=== PATIENT | female | born 1995 | race Asian ===

== ENCOUNTER 2019-08-24 10:49 | Emergency (ER) | payer SELFPAY ==
[2019-08-24 11:56] LABS: Absolute Lymphocytes (CBC) 1.9 K/uL (0.7-4.9); Basophils % 0.9 % (0-1.3); Hematocrit 41.5 % (36.0-45.0); Lymphocytes % 23.7 % (15.3-44.8); MPV 8.3 fL (7.6-11.3); RBC Red Blood Cell Count 5.19 M/uL (3.86-4.86)
[2019-08-24 12:05] LABS: Protime INR 1.04
--- NOTE | 2019-08-24 12:16 | EKG ---
Test Date: 2019-08-24 Test Time: 11:48:07 Cement Side Laster: BRENNA MEASUREMENT RESULTS: Intervals: Rate: 70 NH: 234 QRSD: 74 QT: 380 QTc: 410 [place]: P: 24 NH: 234 QRS: 68 T: 43 INTERPRETIVE STATEMENTS: Sinus rhythm with 1st degree AV block Otherwise normal ECG No previous ECG available for comparison Electronically Signed On 08-24-19 12:16:07 CRADLE PLACER by Andres Chi
[2019-08-24 12:30] LABS: ALT/SGPT 26 U/L (12-78); AST/SGOT 18 U/L (15-37); Albumin 4.2 g/dL (3.4-5.0); Alkaline Phosphatase 88 U/L (45-117); BUN Blood Urea Nitrogen 10 mg/dL (7-18); Bicarbonate 29 mmol/L (21-32); Bilirubin Direct 0.1 mg/dL (0-0.2); Bilirubin Total 0.4 mg/dL (0.2-1.0); Glucose Level 105 mg/dL (74-106); Potassium 3.9 mmol/L (3.5-5.1); Protein, Total 8.1 g/dL (6.4-8.2); Sodium Level 141 mmol/L (136-145)
[2019-08-24 12:43] LABS: Barbiturates NEGATIVE (NEGATIVE); Benzodiazepines NEGATIVE (NEGATIVE); Cocaine NEGATIVE (NEGATIVE); METHAMPHETAM NEGATIVE (NEGATIVE); Methadone NEGATIVE (NEGATIVE); Opiates NEGATIVE (NEGATIVE); Phencyclidine NEGATIVE (NEGATIVE); THC Cannibis NEGATIVE (NEGATIVE)
[2019-08-24 13:02] LABS: Urine Blood 2+ (NEG); Urine Glucose NEGATIVE (NEG); Urine Protein 1+ (NEG); Urine Specific Gravity 1.025 (1.005-1.030)
[2019-08-24] MEDS ORDERED: ACETAMINOPHEN 500 MG TAB ONE (13:24)
--- NOTE | 2019-08-24 15:44 | ER ---
Nurse's Notes [facility] Name: Yasmeen Smith Age: 24 yrs Sex: Female : 1995 Arrival Date: 08/24/2019 Time: 10:52 Bed 8 Private MD: Diagnosis: Post-traumatic stress disorder (PTSD);Major depressive disorder, recurrent Presentation: 08/24 11:11 Presenting complaint: Patient states: "I am just going through a lot and the aa5 sent me here". Pt reports suicidal ideations. Pt states "I am not taking my medications". Transition of care: patient was not received from another setting of care. Onset of symptoms was August 24, 2019. Risk Assessment: Do you want to hurt yourself or someone else? Patient reports desire/thoughts of hurting themselves or someone else. Provider notified. Initial Sepsis Screen: Does the patient meet any 2 criteria? No. Patient's initial sepsis screen is negative. Does the patient have a suspected source of infection? No. Patient's initial sepsis screen is negative. Care prior to arrival: None. 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 - Social history:: Smoking status: Patient/guardian denies using tobacco, Patient/guardian denies using alcohol, street drugs. - Ebola Screening: : No symptoms or risks identified at this time. Screenin:05 Abuse screen: Denies threats or abuse. Denies injuries from another. Nutritional sg screening: No deficits noted. Tuberculosis screening: No symptoms or risk factors identified. Never had TB. Fall Risk None identified. Assessment: 11:05 General: Appears in no apparent distress. well groomed, well developed, well nourished, sg Behavior is calm, cooperative, appropriate for age. Pain: Denies pain. Neuro: Level of Consciousness is awake, alert, obeys commands, Oriented to person, situation, Speech is normal. Cardiovascular: Heart tones S1 S2 present Patient's skin is warm and dry. Chest pain is denied. Respiratory: Airway is patent Respiratory effort is even, unlabored, Respiratory pattern is regular, symmetrical. GI: No signs and/or symptoms were reported involving the gastrointestinal system. : No signs and/or symptoms were reported regarding the genitourinary system. EENT: No signs and/or symptoms were reported regarding the EENT system. Derm: Skin is intact, is healthy with good turgor, Skin is dry, Skin is normal, Skin temperature is warm. Musculoskeletal: Circulation, motion, and sensation intact. Range of motion: intact in all extremities, Reports pain in headache,back pain. 12:05 Reassessment: Patient appears in no apparent distress at this time. Patient and/or sg family updated on plan of care and expected duration. Pain level reassessed. 13:05 Reassessment: Patient appears in no apparent distress at this time. Patient and/or sg family updated on plan of care and expected duration. Pain level reassessed. 13:30 Reassessment: Patient appears in no apparent distress at this time. pt requesting a sg blood test be performed, pt states " I need a blood test done because my urine has been negative, but im and im on my period. C.Kathy RAMIREZ notified. 13:40 Reassessment: awaiting [facility] evaluation. sg 14:07 Reassessment: Patient appears in no apparent distress at this time. [facility] sg outbound telemarketing representative at bedside assessing pt at this time. 20:00 Reassessment: Patient appears in no apparent distress at this time. Patient is alert, lp1 oriented x 3, equal unlabored respirations, skin warm/dry/pink. Reassessment: Patient updated on plan of care; Patient states she does not want to be transferred; Denies SI and HI at this time; States plan to follow up for continued care. General: Behavior is calm, cooperative. 20:40 Reassessment: JAMES Barrera at bedside to reassess patient. lp1 21:10 Reassessment: Patient's belonging returned at this time from security. lp1 21:30 Reassessment: Patient appears in no apparent distress at this time. Patient talking to lp1 personnel to receive all documentation necessary from Provider. 22:00 Reassessment: Patient waiting for ride home for discharge. lp1 Psych: 11:11 Subjective: Patient's mood is sad, Delusions are denied, Hallucinations are denied sg Having thoughts of suicide. Denies suicidal plan. Objective: Patient is cooperative, Speech is normal, Affect is blunted, flat. Interventions: Removed personal items and placed in bag. Patient placed in hospital gown. Searched person for dangerous items. Urine collected and sent for urine drug test. Belonging list filled out. Suicide Risk Assessment: Sad Person Scale: Sex of patient: Female: Score 0 points. Age of patient: Score 1 point if patient 15-34. Depression: Score 1 point if signs of depression are present. Previous Attempt: Score 0 point if patient has not previously attempted suicide. Substance Abuse: Score 0 point if patient does not abuse alcohol or drugs. Rational Thinking: Score 0 point if patient has rational thinking. Social Support: Score 1 point if social support is lacking and/or unavailable. Organized Plan: Score 0 if patient did not have an organized plan in place. Relationship: Score 1 point if patient is , , , or for a single male Chronic Sickness: Score 0 point if patient does not have a chronic illness, debilitating, or severe disorder. TOTAL POINTS: If total points are 3-4, proposed clinical action is close follow-up/consider hospitalization. Safety Checks: Personal items have been removed. Door is open. No visitors are present at this time. Pt denies substance abuse. Commitment: Patient will be a voluntary commitment. Vital Signs: 11:14 BP 115 / 99; Pulse 70; Resp 18 S; Temp 97.0(TE); Pulse Ox 98% on R/A; Weight 82.55 kg aa5 (R); Height 5 ft. 5 in. (165.10 cm) (R); Pain 8/10; 14:00 BP 117 / 82; Pulse 70; Resp 17; Temp 97.0; Pulse Ox 98% on R/A; sg 18:48 BP 118 / 91; Pulse 72; Resp 16; Pulse Ox 100% ; ms 11:14 Body Mass Index 30.28 (82.55 kg, 165.10 cm) aa5 ED Course: 10:52 Patient arrived in ED. as 11:06 Carmelo Chavez PA is PHCP. cp 11:06 Carmelo Loya MD is Attending Physician. cp 11:11 Arm band placed on. aa5 11:12 Triage completed. aa5 11:25 Shoaib Han, RN is Primary Nurse. sg 11:48 EKG done, by cytogenetic technician. reviewed by Carmelo RAMIREZ. at1 11:51 safety checks every 15 min done one paperwork. ms 13:03 called the [facility] / Tami from the [facility] will page out the eb screener to come evaluate the patient. 13:19 the [facility] screener [employer] controlled [employer] just called to inform us she should be here within the eb hour. 14:06 the screener from the [facility] here to evaluate the patient. eb 15:05 faxed patient records in the attempt to transfer to the following facilities / [facility]/ [facility]/ [facility] / [facility]/ [facility]/ [facility]/ [facility]/ [facility] / [facility]/ [facility]/ [facility]/ [facility]. 15:18 initiated a transfer with Dania from the [facility] transfer [facility]. eb 15:36 faxed patient chart and exclusionary form to [facility] as requested. eb 16:47 Diet: Patient given a regular meal tray. Patient given juice. Tolerated well. ms 18:00 connected the psychiatrist [employer] controlled [employer] for [facility] with Carmelo RAMIREZ for patient transfer eb consultation. 19:45 Patient has correct armband on for positive identification. Placed in gown. Bed in low lp1 position. 19:45 Sitter at bedside. lp1 20:57 PHCP role handed off by Carmelo Chavez PA jr8 20:57 Jarvis Rangel PA is PHCP. jr8 21:23 No provider procedures requiring assistance completed. lp1 21:45 IV discontinued, No redness/swelling at site. Pressure dressing applied. lp1 Administered Medications: 13:26 Drug: Tylenol 1000 mg Route: PO; sg 14:00 Follow up: Response: No adverse reaction sg Outcome: 15:43 ER care complete, transfer ordered by . cp 21:23 Discharge ordered by . jr8 22:28 Discharged to home ambulatory, with friend. lp1 22:28 Condition: good 22:28 Discharge instructions given to patient, Instructed on discharge instructions, follow up and referral plans. medication usage, Demonstrated understanding of instructions, follow-up care, medications, Prescriptions given X 1. 22:28 Patient left the ED. lp1 Signatures: Shoaib Han, HEATH RN Katie Sanchez, Naila ms Flores, [place], HEATH RN aa5 Jennifer Willis RN RN lp1 Jarvis Rangel PA PA jr8 Razia Anderson, gusset ripper EKG Tat1 aCrmelo Chavez PA PA cp Botello, Elizabeth eb
--- NOTE | 2019-08-24 15:44 | EDPHYS ---
Physician Documentation [facility] Name: Yasmeen Smith Age: 24 yrs Sex: Female : 1995 Arrival Date: 08/24/2019 Time: 10:52 Bed 8 Private MD: ED Physician Carmelo Loya HPI: 08/24 12:00 This 24 yrs old Female presents to ER via Ambulatory with complaints of Suicidal cp Ideation. 12:00 The patient presents to the emergency department with suicide ideation, but the patient cp has no formulated plan. 12:00 Past psychiatric history: Prior diagnosis: depression, Psychiatric medications include: cp none. 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 - Social history:: Smoking status: Patient/guardian denies using tobacco, Patient/guardian denies using alcohol, street drugs. - Ebola Screening: : No symptoms or risks identified at this time. ROS: 12:05 Constitutional: Negative for body aches, chills, fever, poor PO intake. cp 12:05 Eyes: Negative for injury, pain, redness, and discharge. cp Exam: 11:55 ECG was reviewed by the Attending Physician. cp 12:08 Constitutional: The patient appears in no acute distress, alert, awake, non-toxic, well cp developed, well nourished. 12:08 Head/Face: Normocephalic, atraumatic. cp 12:08 Eyes: Periorbital structures: appear normal, Conjunctiva: normal, Lids and lashes: appear normal, bilaterally. 12:08 ENT: External ear(s): are unremarkable, Nose: is normal, Mouth: is normal, Posterior pharynx: is normal, airway is patent. 12:08 Neck: ROM/movement: is normal, is supple, without pain, no range of motions limitations, no nuchal rigidity. 12:08 Chest/axilla: Inspection: normal, Palpation: is normal, no crepitus, no tenderness. 12:08 Cardiovascular: Rate: normal, Rhythm: regular, Heart sounds: murmur, not appreciated. 12:08 Respiratory: the patient does not display signs of respiratory distress, Respirations: normal, no use of accessory muscles, labored breathing, is not present, Breath sounds: are clear throughout, no decreased breath sounds. 12:08 Abdomen/GI: Exam negative for discomfort, distension, guarding, Inspection: abdomen appears normal. 12:08 Neuro: Orientation: to person, place \T\ time. Mentation: is normal, Motor: moves all fours, strength is normal. Vital Signs: 11:14 BP 115 / 99; Pulse 70; Resp 18 S; Temp 97.0(TE); Pulse Ox 98% on R/A; Weight 82.55 kg aa5 (R); Height 5 ft. 5 in. (165.10 cm) (R); Pain 8/10; 14:00 BP 117 / 82; Pulse 70; Resp 17; Temp 97.0; Pulse Ox 98% on R/A; sg 18:48 BP 118 / 91; Pulse 72; Resp 16; Pulse Ox 100% ; ms 11:14 Body Mass Index 30.28 (82.55 kg, 165.10 cm) aa5 MDM: 11:06 Patient medically screened. cp 13:00 Data reviewed: vital signs, nurses notes, lab test result(s), EKG. cp 13:00 Test interpretation: by ED physician or midlevel provider: ECG. Counseling: I had a cp detailed discussion with the patient and/or guardian regarding: the historical points, exam findings, and any diagnostic results supporting the discharge/admit diagnosis, lab results, the need to transfer to another facility, inpatient psych treatment. 20:57 ED course: Reassessed patient. Patient is not suicidal. Patient stated that she has had jr8 problems with that in the past but today was not suicidal. Stated that she wanted to get back on her medication that she stopped about a year ago. Talked to [facility] as well and was given f/u information for that patient. Patient explained to me that she has depression secondary to incident back in 2014. Patient is of sound mind currently. Has no ideations. I believe patient is safe to go home at this time and can f/u with [facility]. If she can find her medication that she was on previously will fill that for her. Explained to her that if she were to worsen that she must come back. Stated that she would and would be with her husbands family for the time being. 08/24 11:29 Order name: Acetaminophen; Complete Time: 12:47 cp 08/24 11:29 Order name: Basic Metabolic Panel; Complete Time: 12:47 cp 08/24 17:58 Interpretation: Normal except: CL 109. cp 08/24 11:29 Order name: CBC with Diff; Complete Time: 12:47 cp 08/24 17:59 Interpretation: Normal except: RBC 5.19; MCV 79.8; MCH 26.7. cp 08/24 11:29 Order name: ETOH Level; Complete Time: 12:47 cp 08/24 11:29 Order name: Hepatic Function; Complete Time: 12:47 cp 08/24 11:29 Order name: PT-INR; Complete Time: 12:47 cp 08/24 11:29 Order name: Ptt, Activated; Complete Time: 12:47 cp 08/24 11:29 Order name: Salicylate; Complete Time: 12:47 cp 08/24 11:29 Order name: Urine Drug Screen; Complete Time: 12:47 cp 08/24 12:47 Interpretation: Reviewed. cp 08/24 11:29 Order name: EKG; Complete Time: 11:29 cp 08/24 11:38 Order name: Diet Regular; Complete Time: 11:39 cp 08/24 12:29 Order name: Urine Dipstick--Ancillary (enter results); Complete Time: 17:58 ss 08/24 17:58 Interpretation: Normal except: UBLD 2+; UPROT 1+; UESTR TRACE. cp 08/24 12:29 Order name: Urine --Ancillary (enter results); Complete Time: 17:58 ss 08/24 11:29 Order name: EKG - Nurse/Tech; Complete Time: 11:49 cp 08/24 11:29 Order name: IV Saline Lock; Complete Time: 11:49 cp 08/24 11:29 Order name: Labs collected and sent; Complete Time: 11:49 cp 08/24 11:29 Order name: Urine Dipstick-Ancillary (obtain specimen); Complete Time: 12:26 cp 08/24 11:29 Order name: Urine Test (obtain specimen); Complete Time: 12:26 cp EC:55 Rate is 70 beats/min. Rhythm is regular. NH interval is prolonged at 234 msec. QRS cp interval is normal. QT interval is normal. Interpreted by me. Reviewed by me. Administered Medications: 13:26 Drug: Tylenol 1000 mg Route: PO; 14:00 Follow up: Response: No adverse reaction Disposition: 08/24/19 21:23 Discharged to Home. Impression: Post-traumatic stress disorder (PTSD), Major depressive disorder, recurrent. - Condition is Stable. - Discharge Instructions: Helping Someone Who is Suicidal, Major Depressive Disorder. - Prescriptions for duloxetine 30 mg Oral capsule,delayed release(DR/EC) - take 1 capsule by ORAL route once daily; 30 capsule. - Work release form, Medication Reconciliation Form, Thank You Letter, Antibiotic Education, Prescription Opioid Use form. - Follow up: Private Physician; When: 5 - 6 days; Reason: Recheck today's complaints, Continuance of care, Re-evaluation by your physician. - Problem is new. - Symptoms are resolved. Addendum: 08/27/2019 08:18 Co-signature as Attending Physician, Carmelo Loya MD I agree with the assessment and c andrews plan of care. Signatures: Dispatcher [employer] EDShoaib Bruner RN RN sg Anderson, Corey, MD MD cha Calderon, Audri RN RN aa5 Jennifer Willis RN RN lp1 Jarvis Rangel PA PA jr8 Carmelo Chavez PA PA cp Corrections: (The following items were deleted from the chart) 08/24 14:08/23 12:05 Constitutional: Negative for fever, poor PO intake, cp cp 08/24 14:08/23 12:05 Cardiovascular: Negative for chest pain, palpitations, cp cp 08/24 14:08/23 12:05 Respiratory: Negative for cough, shortness of breath, wheezing, cp cp 08/24 14:08/23 12:05 Abdomen/GI: Negative for abdominal pain, nausea, vomiting, and diarrhea, cp cp 08/24 13:08/23 12:05 Eyes: Negative for injury, pain, redness, and discharge, cp cp 08/24 14:08/23 12:05 ENT: Negative for ear pain, sore throat, cp cp 08/24 14:08/23 12:05 Skin: Negative for rash, cp cp 08/24 14:12 01/09 12:05 Neuro: Negative for altered mental status, headache, weakness, cp cp 08/24 14:12 08/23 12:05 Psych: Positive for suicidal ideation, cp cp 08/24 14:12 08/23 12:05 All other systems are negative, cp cp 08/24 18:01 15:43 08/24/2019 15:43 Transfer ordered to Psych Facility. Diagnosis is Suicidal cp ideations. Reason for transfer: Higher level of care. Accepting physician is doctor. Condition is Stable. Problem is an ongoing problem. Symptoms are unchanged. cp 20:57 18:01 08/24/2019 15:43 Transfer ordered to [facility]. Diagnosis is jr8 Suicidal ideations. Reason for transfer: Higher level of care. Accepting physician is DR Sultana Andrews. Condition is Stable. Problem is an ongoing problem. Symptoms are unchanged. cp 22:28 21:23 08/24/2019 21:23 Discharged to Home. Impression: Post-traumatic stress disorder lp1 (PTSD); Major depressive disorder, recurrent. Condition is Stable. Forms are Medication Reconciliation Form, Thank You Letter, Antibiotic Education, Prescription Opioid Use. Follow up: Private Physician; When: 5 - 6 days; Reason: Recheck today's complaints, Continuance of care, Re-evaluation by your physician. Problem is new. Symptoms are resolved. jr8
[2019-08-24 22:56] VITALS: TEMP 97
[2019-08-24 22:58] VITALS: BP 118/91; O2SAT 100
== END 2019-08-24 22:28 | disposition home or self-care (01) ==
LOC: ER 10:49
DX: F43.10 Post-traumatic stress disorder, unspecified (principal); F33.9 Major depressive disorder, recurrent, unspecified
CPT/HCPCS: 36415; 80048; 80076; 80307; 80320; 80329; 81003; 81025; 85025; 85610; 85730; 93005; 99284